=== PATIENT | male | born 1955 | race Caucasian/White ===

== ENCOUNTER 2024-12-13 20:46 | Emergency (ER) | payer BC ==
[~2024-12-13] VITALS: Ht 190.5 cm; Wt 97.0 kg
[2024-12-13 20:47] VITALS: TEMP 98.1; O2SAT 98
[2024-12-13 22:27] VITALS: BP 166/88; PULSE 99; RESP 16
[2024-12-13] MEDS: KETOROLAC 15MG/ML VIAL IM ONE (22:27)
[2024-12-13] MEDS: CYCLOBENZAPRINE 10MG TABLET PO ONE (22:28)
[2024-12-13] MEDS ORDERED: LIDO700A15 TP (23:16)
[2024-12-13] MEDS ORDERED: NAPR-1176 MT (23:16)
== END 2024-12-14 03:42 | disposition home or self-care (01) ==
LOC: ER 20:46
DX: S80.02XA Contusion of left knee, initial encounter (principal); M25.562 Pain in left knee; R26.2 Difficulty in walking, not elsewhere classified; I48.91 Unspecified atrial fibrillation; Z79.1 Long term (current) use of non-steroidal anti-inflammatories (NSAID); W18.39XA Other fall on same level, initial encounter; Y93.89 Activity, other specified; Y92.89 Other specified places as the place of occurrence of the external cause; Y99.8 Other external cause status
CPT/HCPCS: 99283; 73562; 96372; J1885